=== PATIENT | male | born 1990 | race Caucasian/White ===

== ENCOUNTER 2018-07-15 10:22 | Outpatient (CLI) | payer OTHER ==
[~2018-07-15] VITALS: Ht 182.9 cm; Wt 93.0 kg
[2018-07-15 11:00] VITALS: BP 124/82
[2018-07-15] MEDS ORDERED: HTN MED (16:39)
[2018-07-15] MEDS ORDERED: PANTOPRAZOLE SO40 MG ORAL (16:39)
[2018-07-15] MEDS ORDERED: STRATTERA80 MG PO (16:39)
[2018-07-15] MEDS ORDERED: CYMBALTA30 MG ORAL (16:39)
[2018-07-15] MEDS ORDERED: ANXIETY MED (16:39)
--- NOTE | 2018-07-18 13:12 | GI Initial Consult Note ---
History of Present Illness General Date patient seen: Jul 15, 2018 Time patient seen: 13:07 Referring physician: HMO Reason for Consultation: IBS Present Illness HPI 28 year old male patient presents today for evaluation of possible IBS. Symptomatically, the patient has c/o of GERD, Irregular BM Constipation vs. Diarrhea, abdominal bloating, and painful BM's. The patient states he had an endoscopy performed approximately 5 years ago. No history of colonoscopy. Denies any unintentional weight loss or changes in dietary habits. No signs of abuse or neglect. Patient is not fall risk. Home Meds Reported Medications [Htn Med ] No Conflict Check 07/15/18 [Anxiety Med] No Conflict Check 07/15/18 Atomoxetine Hcl (STRATTERA) 80 Mg Capsule, 80 MG PO DAILY, CAP 07/15/18 Duloxetine Hcl* (CYMBALTA*) 30 Mg Capsule.dr, 30 MG ORAL DAILY, CAP 07/15/18 Pantoprazole* (PANTOPRAZOLE*) 40 Mg Tablet.dr, 40 MG ORAL DAILY, TAB 07/15/18 Med list reviewed/reconciled: Yes Allergies: Coded Allergies: No Known Allergies (Unverified , 07/15/18) Patient History History Provided By: Patient, Medical Record PMH Narrative GERD Depression HTN Sleep Apnea / Disorder ADHD Past Surgical History: Nose, Septum Pertinent Family History: none Social History: Denies: smoking, alcohol use, drug use, other Review of Systems All Other Systems: negative except mentioned in HPI Physical Exam Vital Signs Date Time Temp Pulse Resp B/P (MAP) Pulse Ox O2 Delivery O2 Flow Rate FiO2 07/15/18 11:00 98.3 77 124/82 97 Sp02 EP Interpretation: reviewed, normal General Appearance: well appearing, no apparent distress, alert Head: normocephalic EENT: PERRL/EOMI, normal ENT inspection Neck: supple Respiratory: normal breath sounds, no respiratory distress Cardiovascular: normal rate Gastrointestinal: normal inspection, non tender, soft, normal bowel sounds, non -distended Rectal: deferred Genitourinary: deferred Musculoskeletal: normal inspection, back normal Neurologic: normal inspection, alert, oriented x3, responsive Psychiatric: normal inspection, judgement/insight normal, memory normal Skin: normal inspection, normal color, no rash, warm/dry, palpation normal, well hydrated Lymphatic: normal inspection, no adenopathy GI: Plan Problems: (1) IBS (irritable bowel syndrome) (2) Bleeding hemorrhoid (3) Bloated abdomen Plan cont Miralax prn trial VSL #3 Annusol HC RTC x [address] Stubbs. Thank you for this patient referral. The patient was seen and examined at bedside and all new and available data was reviewed in the patients chart. I agree with the above findings, impression and plan. (Patient seen earlier today. Signature stamp does not reflect patient encounter time.). - MD Marilu NegreteEncompass [facility] [employer] Jul 18, 2018 13:12
== END 2018-07-15 10:52 | disposition home or self-care (01) ==
LOC: PAN 10:22
DX: K21.9 Gastro-esophageal reflux disease without esophagitis (principal); R14.0 Abdominal distension (gaseous); K58.9 Irritable bowel syndrome, unspecified; K64.9 Unspecified hemorrhoids; F32.9 Major depressive disorder, single episode, unspecified; I10 Essential (primary) hypertension; G47.30 Sleep apnea, unspecified; F90.9 Attention-deficit hyperactivity disorder, unspecified type
CPT/HCPCS: 99202